=== PATIENT | female | born 1980 | race African-American/Black ===

== ENCOUNTER 2018-04-28 13:29 | Emergency (ER) | payer MEDICAID ==
[~2018-04-28] VITALS: Ht 157.5 cm; Wt 70.3 kg
[2018-04-28] MEDS ORDERED: HYDROCODONE/APAP 10-325 MG TABLET ONE (14:00)
[2018-04-28] MEDS ORDERED: LET TOPICAL SOLUTION 8 ML UDC ONE (14:00)
[2018-04-28] MEDS ORDERED: HYDROCODONE/APAP 10-325 MG TABLET PO ONE (14:00)
[2018-04-28] MEDS ORDERED: LIDOCAINE HCL 2% 20 ML VIAL ONE (14:00)
[2018-04-28] MEDS ORDERED: SODIUM BICARBONATE 4.2 % (NEUT) 5 ML VIAL TP ONE (14:00)
[2018-04-28] MEDS ORDERED: LIDOCAINE HCL 2% 20 ML VIAL TP ONE (14:00)
[2018-04-28] MEDS ORDERED: LET TOPICAL SOLUTION 8 ML UDC TOP ONE (14:00)
[2018-04-28] MEDS ORDERED: SODIUM BICARBONATE 4.2 % (NEUT) 5 ML VIAL ONE (14:00)
[2018-04-28] MEDS ORDERED: MUPIROCIN 2% OINT 22 GM TUBE ONE ×2 (14:58→15:02)
[2018-04-28] MEDS ORDERED: MUPIROCIN 2% OINT 22 GM TUBE TP ONE (15:00)
--- NOTE | 2018-04-28 15:16 | NUR ---
Patient discharged to home in stable conditon. Written and verbal after care instructions given. Patient verbalizes understanding of instructions. Dressing clean and intact on rt leg.
[2018-04-28 15:20] VITALS: BP 112/68
== END 2018-04-28 15:24 | disposition home or self-care (01) ==
LOC: ER 13:29
DX: L02.415 Cutaneous abscess of right lower limb (principal); F12.10 Cannabis abuse, uncomplicated
CPT/HCPCS: 10060; 99284; A4663; J3490 ×2